=== PATIENT | female | born 1955 ===

== ENCOUNTER 2024-12-18 06:00 | Day surgery (SDC) | payer OTHER ==
[2024-12-12 07:57] LABS: BASO % 1.0 % (0.1-1.2); EOS # 0.29 (0.04-0.54); EOS % 5.1 % (0.7-7.0); LYMPH # 1.98 (1.18-3.74); LYMPH % 34.5 % (19.3-53.1); MEAN PLATELET VOLUME 8.80 fl (9.4-12.4); MONO # 0.48 (0.24-0.82); MONO % 8.4 % (4.7-12.5); NEUT # 2.92 (1.56-6.13); NEUT % 50.8 % (34.0-71.1); RED CELL DISTRIBUTION WIDTH 13.2 % (11.6-14.4)
[2024-12-12 07:59] LABS: URINE APPEARANCE Clear; URINE BILIRRUBIN Negative (NEGATIVE); URINE BLOOD Negative; URINE COLOR Yellow; URINE GLUCOSE Negative (NEGATIVE); URINE KETONE Negative (NEGATIVE); URINE LEUKOCYTE Small; URINE NITRATE Negative; URINE PROTEIN Negative (NEGATIVE); URINE UROBILINOGEN 0.2 E.U./dl
[2024-12-12 08:03] LABS: URINE BACTERIA 11.9 uL (0.0-1933); URINE EPITHELIAL CELLS 1.6 uL (0.0-38.8); URINE RBC 4.1 uL (0.0-20.8); URINE WBC 16.1 uL (0.0-23.2)
[2024-12-12 08:23] VITALS: BP 160/90
[2024-12-12 08:40] LABS: INR 0.99
[2024-12-12 08:42] LABS: ALT/SGPT 25.0 U/L (12-78); AST/SGOT 20.0 U/L (15-37); BILIRUBIN TOTAL 0.35 mg/dL (0.3-1.2); BUN CREA RATIO 22.0 (7.0-25.0); CREATININE SERUM 0.63 mg/dL (0.55-1.02); GFR 93.42; GLOBULINA 2.8 G/DL (2.4-3.5); GLUCOSE FASTING 107.0 mg/dL (65-100); OSMOLALITY SERUM 286.0 MOSM/KG (275-295)
[2024-12-12 08:44] LABS: URINE CAST 0.00 uL (0.0-1.40)
[~2024-12-18] VITALS: Ht 162.6 cm; Wt 62.1 kg
[~2024-12-18 06:00] MED LIST: COZAAR25 MG PO; ECOTRIN81 MG PO; MEMANTINE HCL10 MG PO; PRISTIQ ER50 MG PO; ROSUVASTATIN CA10 MG PO; SYNTHROID50 MCG PO; ZETIA10 MG PO
[2024-12-18] MEDS ORDERED: CEFAZOLIN SODIUM 1,000 MG VIAL ONE (07:24)
[2024-12-18] MEDS ORDERED: KETOROLAC TROMETHAMINE 60 MG VIAL IM ONE (07:54)
[2024-12-18] MEDS ORDERED: BUPIVACAINE HCL/Mpf 0.5% 10ML VIAL ONE (07:55)
[2024-12-18] MEDS ORDERED: POVIDONE-IODINE 118 ML BOTT TOP ONE (07:55)
[2024-12-18] MEDS ORDERED: LIDOCAINE HCL 1%/EPINEPHRINE 20ML VIAL IJ ONE (07:55)
[2024-12-18] MEDS ORDERED: METHYLPREDNISOLONE ACETATE 80 MG/ML VIAL ONE (08:01)
[2024-12-18] MEDS ORDERED: BUPIVACAINE HCL/MPF 0.5% 30ML VIAL ONE (08:01)
[2024-12-18] MEDS ORDERED: TRAM1TAB98 PO (09:40)
[2024-12-18] MEDS ORDERED: DUI500 PO (09:40)
[2024-12-18] MEDS ORDERED: ENALAPRILAT DIHYDRATE 1.25 MG/ML VIAL IV ONE ×2 (11:29→11:40)
[2024-12-18] MEDS ORDERED: CEFADROXIL 500 MG CAPSULE PO SCH (21:00)
== END 2024-12-18 12:40 | disposition home or self-care (01) ==
LOC: CIR.AMB 06:00
PROVIDERS: ATTEND Orthopaedic Surgery Sports Medicine
DX: M23.221 Derangement of posterior horn of medial meniscus due to old tear or injury, right knee (principal); M23.51 Chronic instability of knee, right knee; M67.51 Plica syndrome, right knee; M22.41 Chondromalacia patellae, right knee; M17.11 Unilateral primary osteoarthritis, right knee